=== PATIENT | male | born 1960 | race Caucasian/White ===

== ENCOUNTER 2025-05-31 12:13 | Inpatient (IN) | payer OTHER, SELFPAY ==
[2025-05-31] VITALS (21 sets, daily range): BP systolic 97–153; BP diastolic 53–91; BMI 37.3; BMI 37.2
[2025-05-31] MEDS: NSS 500 IV ×3 (05:49→22:49)
[2025-05-31] MEDS: DILAUDID 1 MG IV (05:51)
--- NOTE | 2025-05-31 05:51 | ED.GENMED ---
History of Present Illness
<Felisa Mcclelland PA-C - Last Filed: 06/05/25 15:09>
General
Chief Complaint: Abdominal Symptoms
Time Seen by Provider: 05/31/25 05:20
Past History
<Felisa Mcclelland PA-C - Last Filed: 06/05/25 15:09>
Past History
ED Past Medical History: HTN, Hypercholesterolemia, NIDDM and Other (Diverticulitis)
ED Past Surgical History: None
Course
<Felisa Mcclelland PA-C - Last Filed: 06/05/25 15:09>
Orders/Labs/Results
Orders:
Orders
05/31/25 05:11
IV Insert/Care/Rem.- Treatment PRN
05/31/25 05:33
0.9% Sodium Chloride 500 ml [Nss] 500 ml IV BOLUS
HYDROmorphone [Dilaudid] 1 mg IV NOW STA
Ondansetron Injectable [Zofran] 4 mg IV NOW STA
05/31/25 05:47
Complete Blood Count/With Diff Urgent
Comprehensive Metabolic Panel Urgent
Lipase Urgent
05/31/25 06:39
Iohexol [Omnipaque] See Protocol PO NOW STA
05/31/25 06:40
CT Abd/pel W Iv And Oral Contr Urgent
Comment:
Reason For Exam: abd pain, vomiting, partial colectomy
05/31/25 08:22
HYDROmorphone [Dilaudid] 0.5 mg IV NOW STA
Ondansetron Injectable [Zofran] 4 mg IV NOW STA
05/31/25 Lunch
NPO
Allow oral meds: Yes
Allow clear liquids: Sips of Clears
05/31/25 10:53
HYDROmorphone [Dilaudid] 0.5 mg IV NOW STA
Ondansetron Injectable [Zofran] 4 mg IV NOW STA
05/31/25 11:00
0.9% Sodium Chloride 500 ml [Nss] 500 ml IV 100 mls/hr
05/31/25 11:28
SURGICAL CONSULT Routine
Consulting Provider: Shawn Bustos
Was physician already notified: Yes
Reason for consult: GB colic, 1.2cm stone
05/31/25 11:34
Urinalysis Reflex To Culture Urgent
Date Specimen was Collected: 05/31/25
Time Specimen was Collected: 05:11
Urine Microscopic Reflex Cult Urgent
05/31/25 12:00
Admit/Transfer Patient As Directed
Co-Sign Provider:
Level of Care: Inpatient admission
Assign to:: Medical/Surgical
Physician / Group: Hospitalist
Diagnosis: Biliary colic
Reason for Hospitalization: Biliary
Expected length of stay greater than two midnights?: Yes
ELOS- Estimated Length of Stay in days: 2
I certify the patient meets the requirements for IP care: Yes
05/31/25 12:01
PRN Pain Medication Management As Directed
May give lesser potent ordered pain med per pt: Yes
preference::
Protocol:: Medication orders for pain may be administered in a
manner that supports deferring to patient preference
when the pt is:
- Requesting an ordered lesser potent pain medication.
Least to most potent pain medications are defined
as: acetaminophen < NSAID < tramadol < opioids
(morphine, oxycodone, hydromorphone).
- Requesting a lesser dose of the same medication IF
ORDERED.
- Requesting a less intrusive route of administration
if both routes are prescribed by the provider (PO <
IV).
05/31/25 12:03
Code Status As Directed
Resuscitation Status: Full Code
05/31/25 13:52
Activity As Directed
Activity Level: As Tolerated
Vital Signs As Directed
Frequency: Per unit guidelines
DX Deep Vein Thrombosis Video Routine
06/01/25 07:04
Complete Blood Count/With Diff IN AM
Comprehensive Metabolic Panel IN AM
Abnormal Lab Results
05/31/25 05/31/25
05:47 11:34
RBC 4.10 L 10^6/uL
(4.70-6.10)
Hgb 12.3 L g/dL
(13.0-18.0)
Hct 35.5 L %
(39.0-52.0)
MPV 10.9 H fL
(7.4-10.4)
Absolute Neuts (auto) 6.8 H 10^3/uL
(1.4-6.5)
Absolute Lymphs (auto) 1.0 L 10^3/uL
(1.2-3.4)
Neutrophils % 81.4 H %
(42.2-75.2)
Lymphocytes % 11.7 L %
(20.5-51.1)
Glucose 144 H mg/dl
(70-99)
Ur Occult Blood Reflex 1+ A
(Negative)
Urine Albumin (Reflex) 2+ A
(Neg - Trace)
05/31/25 05:47
05/31/25 05:47
Vital Signs
Initial and Last Documented VS:
Initial Vital Signs
Temp Pulse Resp BP Pulse Ox
36.4 C 56 20 146/72 100
05/31/25 05:05 05/31/25 05:05 05/31/25 05:05 05/31/25 05:05 05/31/25 05:05
Last Documented Vital Signs
Temp Pulse Resp BP Pulse Ox
36.6 C 69 18 107/57 96
06/01/25 07:45 06/01/25 07:45 06/01/25 07:45 06/01/25 07:45 06/01/25 07:45
<Alexx Bernstein MD - Last Filed: 05/31/25 11:04>
Orders/Labs/Results
Orders:
Orders
05/31/25 05:11
IV Insert/Care/Rem.- Treatment PRN
05/31/25 05:33
0.9% Sodium Chloride 500 ml [Nss] 500 ml IV BOLUS
HYDROmorphone [Dilaudid] 1 mg IV NOW STA
Ondansetron Injectable [Zofran] 4 mg IV NOW STA
05/31/25 05:47
Complete Blood Count/With Diff Urgent
Comprehensive Metabolic Panel Urgent
Lipase Urgent
05/31/25 06:39
Iohexol [Omnipaque] See Protocol PO NOW STA
05/31/25 06:40
CT Abd/pel W Iv And Oral Contr Urgent
Comment:
Reason For Exam: abd pain, vomiting, partial colectomy
05/31/25 08:22
HYDROmorphone [Dilaudid] 0.5 mg IV NOW STA
Ondansetron Injectable [Zofran] 4 mg IV NOW STA
05/31/25 Lunch
NPO
Allow oral meds: Yes
Allow clear liquids: Sips of Clears
05/31/25 10:53
HYDROmorphone [Dilaudid] 0.5 mg IV NOW STA
Ondansetron Injectable [Zofran] 4 mg IV NOW STA
05/31/25 11:00
0.9% Sodium Chloride 500 ml [Nss] 500 ml IV 100 mls/hr
05/31/25 11:28
SURGICAL CONSULT Routine
Consulting Provider: Shawn Bustos
Was physician already notified: Yes
Reason for consult: GB colic, 1.2cm stone
05/31/25 11:34
Urinalysis Reflex To Culture Urgent
Date Specimen was Collected: 05/31/25
Time Specimen was Collected: 05:11
Urine Microscopic Reflex Cult Urgent
05/31/25 12:00
Admit/Transfer Patient As Directed
Co-Sign Provider:
Level of Care: Inpatient admission
Assign to:: Medical/Surgical
Physician / Group: Hospitalist
Diagnosis: Biliary colic
Reason for Hospitalization: Biliary
Expected length of stay greater than two midnights?: Yes
ELOS- Estimated Length of Stay in days: 2
I certify the patient meets the requirements for IP care: Yes
05/31/25 12:01
PRN Pain Medication Management As Directed
May give lesser potent ordered pain med per pt: Yes
preference::
Protocol:: Medication orders for pain may be administered in a
manner that supports deferring to patient preference
when the pt is:
- Requesting an ordered lesser potent pain medication.
Least to most potent pain medications are defined
as: acetaminophen < NSAID < tramadol < opioids
(morphine, oxycodone, hydromorphone).
- Requesting a lesser dose of the same medication IF
ORDERED.
- Requesting a less intrusive route of administration
if both routes are prescribed by the provider (PO <
IV).
05/31/25 12:03
Code Status As Directed
Resuscitation Status: Full Code
05/31/25 13:52
Activity As Directed
Activity Level: As Tolerated
Vital Signs As Directed
Frequency: Per unit guidelines
DX Deep Vein Thrombosis Video Routine
06/01/25 07:04
Complete Blood Count/With Diff IN AM
Comprehensive Metabolic Panel IN AM
Abnormal Lab Results
05/31/25 05/31/25
05:47 11:34
RBC 4.10 L 10^6/uL
(4.70-6.10)
Hgb 12.3 L g/dL
(13.0-18.0)
Hct 35.5 L %
(39.0-52.0)
MPV 10.9 H fL
(7.4-10.4)
Absolute Neuts (auto) 6.8 H 10^3/uL
(1.4-6.5)
Absolute Lymphs (auto) 1.0 L 10^3/uL
(1.2-3.4)
Neutrophils % 81.4 H %
(42.2-75.2)
Lymphocytes % 11.7 L %
(20.5-51.1)
Glucose 144 H mg/dl
(70-99)
Ur Occult Blood Reflex 1+ A
(Negative)
Urine Albumin (Reflex) 2+ A
(Neg - Trace)
05/31/25 05:47
05/31/25 05:47
Vital Signs
Initial and Last Documented VS:
Initial Vital Signs
Temp Pulse Resp BP Pulse Ox
36.4 C 56 20 146/72 100
05/31/25 05:05 05/31/25 05:05 05/31/25 05:05 05/31/25 05:05 05/31/25 05:05
Last Documented Vital Signs
Temp Pulse Resp BP Pulse Ox
36.6 C 69 18 107/57 96
06/01/25 07:45 06/01/25 07:45 06/01/25 07:45 06/01/25 07:45 06/01/25 07:45
<Felisa Mcclelland PA-C - Last Filed: 06/05/25 15:09>
MDM/Problems Addressed
Differential Diagnosis Includes:
see MDM
MDM/Problems Addressed:
Note:
CHIEF COMPLAINT(S)
Abdominal pain and vomiting.
HISTORY OF PRESENT ILLNESS
The patient is a 65-year-old male who presents with abdominal pain and vomiting. He reports that the abdominal pain started the previous night at approximately 10:00 PM and worsened over time. He had consumed a dinner consisting of a cheese hoagie,
potato chips, and soda. The pain began before the onset of nausea. The patient vomited before arriving at the facility and once more while at the facility. He describes the pain as constant and significant, rating it as an 8 out of 10 in severity.
The pain is not associated with any chest pain or fever.
The patient recalls a previous episode of abdominal pain which occurred approximately seven weeks ago, resolving after a few days without medical intervention. He has a history of diverticulitis and underwent surgery with a resection of 18 inches of
his intestine a couple of years ago. The patient denies any history of pancreatitis but does have a history of diverticulitis with a previous abscess formation following the colon surgery. He reports feeling more bloated than usual. Physical
examination reveals tenderness in the abdominal area but no hernias were noted.
PAST MEDICAL AND SURGICAL HISTORY
The patient has a history of hypertension, hyperlipidemia, type 2 diabetes mellitus (managed with metformin), and past diverticulitis with surgical intervention involving resection of the colon.
CHRONIC MEDICAL CONDITIONS SIGNIFICANTLY AFFECTING CARE
Hypertension, hyperlipidemia, and type 2 diabetes mellitus.
SOCIAL HISTORY
The patient does not consume alcohol, tobacco, or illicit substances.
PHYSICAL EXAM
GENERAL: Alert , in no apparent distress
EYE: pupils equal and reactive
NECK: Supple
ENT: o/p clr, mmm.
CARDIAC: Regular rate and rhythm .
LUNGS: Clear breath sounds bilaterally, no acute respiratory distress, no wheezes/rales/rhonchi
ABDOMEN: Soft, obese, mildly distended, soft, tender upper and left abdomen , no r/g, no cvat, normal bowel sounds
NEUROLOGICAL: Alert and oriented, no focal neuro deficits
SKIN: Warm and dry, skin intact.
MUSCULOSKELETAL: No edema, well perfused. neg stefany's sign
PSYCH: Normal and appropriate interaction.
- The patients vital signs were noted, and nursing notes have been reviewed.
PROBLEM LIST
Acute:
1. Abdominal pain
2. Nausea and vomiting
Chronic:
1. Hypertension
2. Hyperlipidemia
3. Type 2 diabetes mellitus
PLAN
1. Initiate blood work to assess liver function tests to investigate potential hepatic involvement.
2. Imaging studies will be conducted, starting with a non-contrasted scan to avoid exacerbating vomiting.
3. Administer medications for nausea and pain relief as requested by the patient.
4. Consider an ultrasound if liver function tests are elevated.
DIFFERENTIAL DIAGNOSIS
The Differential Diagnosis includes, in no particular order and is not limited to:
1. Small bowel obstruction
2. Diverticulitis
3. Gastroenteritis
4. Pancreatitis
5. Peptic ulcer disease
6. Cholecystitis
7. Appendicitis
8. Mesenteric ischemia
9. Gastroparesis
10. Gastroesophageal reflux disease (GERD)
65-year-old male with a history of a previous bowel resection status post colostomy with reversal several years ago due to diverticulitis presents for abdominal pain and vomiting onset last night with 2 episodes of vomiting and abdominal pain and
distention. On exam he has mildly distended, obese abdomen with mild tenderness to the mid abdomen. There is no guarding or rebound. Patient's labs are unremarkable. After analgesic and antiemetic we will try some oral contrast. Signed out
pending CT
<Felisa Mcclelland PA-C - Last Filed: 06/05/25 15:09>
*Pulse Oximetry
SaO2: 99
Oxygen Mode of Delivery: Room air
ED Attending Note
<Felisa Mcclelland PA-C - Last Filed: 06/05/25 15:09>
-
Portions of this chart may have been created with voice recognition software.� Occasional wrong word or��sound alike� substitutions may have occurred due to the inherent limitations of voice recognition software.
<Alexx Bernstein MD - Last Filed: 05/31/25 11:04>
ED Attending Note
Patient seen and examined by attending physician: Yes
ED Attending Note:
Patient presents to ED secondary to persistent abdominal pain associated with nausea since last night. Patient has had similar symptoms in the past, especially associated with food, but always resolved spontaneously. Abdominal pain described as
sharp, diffuse, without alleviating or exacerbate factors. Denies trauma. Denies fever or chills. Denies diarrhea. Denies change in bowel habits. Denies recent change in medications.
Physical Exam
General: mild painful distress, not acutely ill. afebrile. overweight
Head: nc/at. eomi
Neck: supple. normal range of motion
Heart: s1/s2 regular rate and rhythm
Lungs: no acute respiratory distress. clear bilaterally
Abdomen: normal bowel sounds. mild epigastric/periumbilical tenderness to palpation, without distention
Neuro: alert and oriented. no focal neurological deficits
Skin: no rash
Psychiatric: well kept. interactive and cooperative
Extremities: no edema. no calf tenderness
History, exam, and CT abdomen pelvis, consistent with likely biliary colic, secondary to large gallstone in the gallbladder neck. Patient requiring multiple doses of pain medication in ED. As such, patient will be admitted for further evaluation
and treatment. On-call GI physician, Dr. Vazquez, notified via [facility] text.
Discharge Plan
Departure
Patient Disposition: Admit
Date of Disposition: 05/31/25
Time of Disposition: 10:55
Admit to: Med/Surg
Presentation/result/management discussed w/ accepting MD/DO: Hospitalist
Discharge Problem:
Biliary colic
Interventions
Interventions:
*General Assessment Last Done: 05/31/25 05:05
*Neglect/Abuse Screening Last Done: 05/31/25 05:05
*ED- Fall Risk Assessment Last Done: 05/31/25 05:05
*ED Influenza Vaccine History Last Done: 05/31/25 05:05
*Nursing Disposition Last Done: 05/31/25 13:45
RZ-Dbgzvp-Wwjjyimnvf Assessment Last Done: 05/31/25 05:29
Discharge Date and Time
Discharge Date/Time: 05/31/25 13:45
[2025-05-31] MEDS: ZOFRAN 4 MG IV ×3 (05:52→11:05)
[2025-05-31 06:08] LABS: Hematocrit 35.5 % (39.0-52.0); Hemoglobin 12.3 g/dL (13.0-18.0); Mean Corp Hgb Conc. 34.6 g/dL (33.0-37.0); Mean Corpuscular Volume 86.6 fL (80.0-94.0); Nucleated Red Blood Cells % 0 % (-); Platelet Count 182 10^3/uL (130-400); Red Cell Dist. Width 12.7 % (11.5-14.5)
[2025-05-31 06:34] LABS: ALT (SGPT) 17 U/L (0-50); AST (SGOT) 18 U/L (17-59); Albumin 3.7 g/dl (3.5-5.0); Alkaline Phosphatase 86 U/L (38-126); Blood Urea Nitrogen 16 mg/dl (9-20); Calcium 9.3 mg/dl (8.4-10.2); Carbon Dioxide 30 mmol/L (22-30); Chloride 103 mmol/L (98-107); Estimated Creatinine Clearance 95 ml/min; Glucose 144 mg/dl (70-99); Lipase 93 U/L (23-300); Potassium 4.0 mmol/L (3.5-5.1); Sodium 139 mmol/L (135-145); Total Protein 6.7 g/dl (6.3-8.2); eGFR > 60.00
[2025-05-31] MEDS: OMNIPAQUE 50 ML PO (07:10)
--- NOTE | 2025-05-31 07:38 | EDRN ---
Pt states pain remains 2-3/10 at this time. Pt is drinking contrast at this time.
[2025-05-31] MEDS: DILAUDID 0.5 MG IV ×3 (08:27→14:24)
--- NOTE | 2025-05-31 09:10 | EDRN ---
Pt has finished drinking oral contrast at this time.
--- NOTE | 2025-05-31 10:42 | EDRN ---
Pt remains not able to void since this RN took over care of pt at 07:00. Pt is aware urine spec is needed. Pain is now 5/10 and pt has nausea. Pain started to increase post CT an nausea came back w/ movement in CT.
--- NOTE | 2025-05-31 10:51 | EDRN ---
Dr. Bernstein TT'd about pt's pain and nausea at this time.
--- NOTE | 2025-05-31 11:23 | EDRN ---
Dr. Solis in to see pt at this time.
--- NOTE | 2025-05-31 11:37 | EDRN ---
Pt OOB to [facility] and voided w/ urine spec obtained and sent. Pt states pain is gone as is nausea at this time.
--- NOTE | 2025-05-31 11:48 | HPS.HSE ---
Addendum entered and electronically signed by Luis Solis MD 05/31/25 13:25:
I personally performed a history and physical exam of the patient and discussed management with the resident. I reviewed the resident's note and agree with the documented findings and plan of care HPI/CC.
65-year-old male who presents with a chief complaint of right upper quadrant abdominal pain. He had some vomiting this morning. Denies any fevers.
142/60, 64, 16, 97.6 �F, 94% RA
Gen: NAD, AAOx3.
Eyes: EOMI, PERRLA, no scleral icterus.
Neck: supple.
CV: RRR, +S1/S2, no m/r/g.
Resp: CTAB, no rales, wheezes, or rhonchi.
Abd: +BS, soft, RUQ TTP without guarding, ND
Skin: No rashes.
Neuro: CN 2-12 intact, non-focal.
Psych: Normal mood and affect.
Allergies
Allergy/AdvReac Type Severity Reaction Status Date / Time
No Known Allergies Allergy Verified 05/31/25 05:05
Home Medications
aspirin 81 mg tablet,delayed release 81 mg PO HS Blood clot prevention/tx 07/08/21
potassium chloride 20 mEq tablet,extended release(part/cryst) (Klor-Con M) 20 meq PO DAILY Electrolyte Repletion 07/08/21
tamsulosin 0.4 mg capsule 0.4 mg PO HS Urinary issue 07/08/21
potassium chloride 20 mEq tablet,extended release(part/cryst) (Klor-Con M) 40 meq PO QPM Electrolyte Repletion 01/19/22
losartan 100 mg-hydrochlorothiazide 25 mg tablet 1 tab PO DAILY Blood Pressure 05/31/25
omeprazole 20 mg tablet,delayed release 20 mg PO DAILY gerd 05/31/25
rosuvastatin 40 mg tablet (Crestor) 40 mg PO DAILY High Cholesterol 05/31/25
tirzepatide 15 mg/0.5 mL subcutaneous pen injector (Mounjaro) 15 mg SC WE Weight Gain 05/31/25
Lab Results
05/31/25 05/31/25
05:47 11:34
WBC 8.4
RBC 4.10 L
Hgb 12.3 L
Hct 35.5 L
MCV 86.6
MCH 30.0
MCHC 34.6
RDW 12.7
Plt Count 182
MPV 10.9 H
Abs Immat Gran (auto) 0.0
Absolute Neuts (auto) 6.8 H
Absolute Lymphs (auto) 1.0 L
Absolute Monos (auto) 0.4
Absolute Eos (auto) 0.1
Absolute Basos (auto) 0.0
Immature Gran % 0.2
Neutrophils % 81.4 H
Lymphocytes % 11.7 L
Monocytes % 5.2
Eosinophils % 1.0
Basophils % 0.5
Nucleated RBC % 0
Sodium 139
Potassium 4.0
Chloride 103
Carbon Dioxide 30
BUN 16
Creatinine 1.0
Estimated Creat Clear 95
eGFR > 60.00
Glucose 144 H
Calcium 9.3
Total Bilirubin 0.5
AST 18
ALT 17
Alkaline Phosphatase 86
Total Protein 6.7
Albumin 3.7
Lipase 93
Urine Color Yellow
Urine Clarity Clear
Urine pH 7.0
Ur Specific [place] 1.005
Urine Ketones Negative
Ur Occult Blood Reflex 1+ A
Urine Nitrite (Reflex) Negative
Urine Bilirubin Negative
Urine Urobilinogen 1+
Leukocyte Esterase Rfl Negative
Urine RBC 0-2
Urine WBC (Reflex) 3-5
Ur Squamous Epith Cells 0-2
Urine Glucose Negative
Urine Albumin (Reflex) 2+ A
CT A/P:
1. No acute intra-abdominal process identified.
2. As above, area of decreased hepatic attenuation with indistinct margins along the lateral aspect of the right lobe of the liver with associated mild capsular retraction. This could be related to scarring or perfusion anomaly. Other etiologies
including neoplasm are possible, considered less likely. Could be further evaluated with follow-up abdominal ultrasound nonemergently.
3. Cholelithiasis.
4. Multiple ventral hernias as above. There is involvement of small and large bowel, no associated obstruction. No signs of associated acute inflammatory changes.
RUQ pain due to GB colic:
-LFTs/Lipase normal, afebrile, no leukocytosis
-CT A/P with 1.2cm GB neck cholelithiasis
-NPO/IVFs/pain control
-c/s surgery
Original Note:
Family Physician
-
Family Physician: Winirfed Rasmussen MD
Chief Complaint
-
Abdominal pain, nausea, vomiting
History of Present Illness
65-year-old male presents to the ER reporting abdominal pain, vomiting. He has a past medical history of hypertension, hyperlipidemia, diabetes. Patient reports that the pain started last night 2 hours after he had dinner. It is located in the
mid abdominal region, no radiation, constant, 8/10 but he has not taken anything for the pain. Patient vomited early in the morning, nonbloody vomitus. No associated fever/chills, chest pain, lightheadedness/dizziness, diarrhea, bloody stools.
Last time he had a bowel movement was yesterday morning, but he is passing flatus. Patient reports that he had similar episodes before from the past 2 years, but was not as severe as this one. Patient has a history of diverticulitis, s/p resection
of 18 inches of intestine.
ED course-patient afebrile at presentation, vital stable, normal white count, hemoglobin�12.3, normal LFTs, CT abdomen pelvis with evidence of 1.2 cm stone in the gallbladder neck. Patient was given antiemetics and analgesics in the ER, surgery
consulted.
Medical History
Past Medical History
Past Medical History: Reports HTN, Hypercholesterolemia and NIDDM
Past Surgical History: Reports Bowel Resection
Social History
Tobacco: Non-smoker
Alcohol: Occasional
Drug: None
Personal:
Living: Alone
Employment: Employed
Family History
Family History: Not pertinent
Allergies / Home Medications
Allergies reflects when Allergies were last updated in [employer].
Home Medications with original date entered in [employer]
Allergy/Medication List:
Allergies
Allergy/AdvReac Type Severity Reaction Status Date / Time
No Known Allergies Allergy Verified 05/31/25 05:05
Home Medications
aspirin 81 mg tablet,delayed release 81 mg PO HS Blood clot prevention/tx 07/08/21
potassium chloride 20 mEq tablet,extended release(part/cryst) (Klor-Con M) 20 meq PO DAILY Electrolyte Repletion 07/08/21
tamsulosin 0.4 mg capsule 0.4 mg PO HS Urinary issue 07/08/21
potassium chloride 20 mEq tablet,extended release(part/cryst) (Klor-Con M) 40 meq PO QPM Electrolyte Repletion 01/19/22
losartan 100 mg-hydrochlorothiazide 25 mg tablet 1 tab PO DAILY Blood Pressure 05/31/25
omeprazole 20 mg tablet,delayed release 20 mg PO DAILY gerd 05/31/25
rosuvastatin 40 mg tablet (Crestor) 40 mg PO DAILY High Cholesterol 05/31/25
tirzepatide 15 mg/0.5 mL subcutaneous pen injector (Mounjaro) 15 mg SC WE Weight Gain 05/31/25
Review of Systems
-
A 12 point ROS was completed and negative except as noted: Yes
Physical Exam
Vital Signs
Vital Signs
Temp Pulse Resp BP Pulse Ox
97.6 F 65 16 141/66 100
05/31/25 05:05 05/31/25 11:15 05/31/25 11:15 05/31/25 11:00 05/31/25 11:38
Physical Exam
General: No Apparent Distress
HEENT: NormoCephalic, Moist mucous membranes and Atraumatic
Respiratory: Clear
Cardiac: S1/S2 and Regular Rhythm
GI: Soft, Non Tender, Normal Bowel Sounds and Distended
Laboratory Results
-
05/31/25 05:47
05/31/25 05:47
Laboratory Results
Total Bilirubin 0.5 mg/dl (0.2-1.3) 05/31/25 05:47
AST 18 U/L (17-59) 05/31/25 05:47
ALT 17 U/L (0-50) 05/31/25 05:47
Alkaline Phosphatase 86 U/L (38-126) 05/31/25 05:47
Lipase 93 U/L (23-300) 05/31/25 05:47
Impression/Plan
-
IMPRESSION:
65-year-old male presenting with abdominal pain, nausea, vomiting. He has a past medical history of hypertension, hyperlipidemia, diabetes mellitus, diverticulitis s/p bowel resection.
PLAN:
#Gallstone
Patient is afebrile, normal WBC count.
Hemodynamically stable
CT with evidence of gallstone in the gallbladder neck, no evidence of infection.
Will manage conservatively
Surgery consulted
Start IV fluids
N.p.o.
Adequate pain control with Dilaudid
Antiemetics as needed
#NIDDM
Patient is on tirzepatide
Will do SSI�moderate
#Hyperlipidemia
Continue Crestor
#Hypertension
Continue losartan hydrochlorothiazide
#Continue oral KCl
DVT prophylaxis�heparin subcu
Diet n.p.o. for now
Full code
[2025-05-31 11:50] LABS: Urine Character Clear (Clear)
--- NOTE | 2025-05-31 12:12 | EDRN ---
Dr. Caleb Roa (Hospitalist resident) in room w/ pt at this time.
[2025-05-31 12:34] LABS: Urine Red Blood Cell 0-2 /HPF (0-2); Urine Squamous Cell 0-2 /LPF (Few)
--- NOTE | 2025-05-31 12:35 | EDRN ---
[facility] surgical PA in room w/ pt at this time.
--- NOTE | 2025-05-31 12:42 | EDRN ---
Case management in room w/pt at this time. (Dariusz Cherry).
--- NOTE | 2025-05-31 12:53 | CON.GS ---
Addendum entered and electronically signed by Gabriel Corona MD 05/31/25 19:13:
Patient seen and examined.
Patient is a 65 yo M with a PMH of obesity, GERD, HTN, HLD, NIDDM, LEFT eye blindness, DANIE, and diverticulitis c/b colovesicular fistula s/p Esperanza's procedure s/p reversal. Mr. Campuzano states that yesterday evening he acutely developed RIGHT-sided
abdominal pain. This was different than his prior chronic abdominal discomfort which he describes as more centrally as well as located over his ostomy. Symptoms occurred after having a cheese hoagie with chips and a chocolate bar. Currently his
abdominal discomfort has improved. Associated nausea and vomiting. Denies any jaundice, pale stools, or tea colored urine.
Gen: NAD
Abd: soft, mild RUQ tenderness, obese, non-peritoneal, prior incisions well healed, palpable midline and parastoma to thel hernias
Labs and imaging were reviewed.
Patient is a 65 yo M p/w acute cholecystitis versus biliary colic
The natural history and pathophysiology of biliary stone disease was discussed. Anatomy was reviewed. Workup thus far including labs and CT scan imaging was reviewed. Options for management were reviewed. Recommended plan for cholecystectomy.
Plan for laparoscopic cholecystectomy. The procedure itself, as well as the risks, benefits, and alternatives was discussed. Specifically, we discussed the risks of bleeding, infection, injury to surrounding structures (bowel, bile ducts), CBD
injury, need for open procedure. Postprocedure recovery including pain management, activity restrictions, and a 10 to 20% risks of fluctuations in GI function were discussed. All questions answered. Consent signed.
-- Laparoscopic cholecystectomy with IOC
-- NPO, IVF
-- Antibiotics: Zosyn
Original Note:
Consultation
-
Date/Time Consultation Performed: 05/31/25 1995
Medical History
-
Chief Complaint: abdominal pain
History of Present Illness:
Mr Adan is a 65 yo male with a h/o NIDDM on Mounjaro, morbid obesity with DANIE on cpap, diverticulitis complicated by colovesical fistula s/p Esperanza's with takedown of the fistula in 2021 with subsequent reversal of the colostomy who presents with
intermittent upper abdominal pain after eating over the past months to a year. Last night he had a cheese hoagie with chips and later that night a chocolate bar, he subsequently developed upper right abdominal pain radiating across his abdomen to
the left which persisted. He does have several ventral/incisional hernias on exam and notes that often the pain he has after eating is not only to the RUQ but also to the left parastomal hernia site and the area becomes quite firm/distended at
times. With this current episode, his pain was more focally on the right side and accompanied by nausea with an episode of emesis. He denies fevers or chills. He notes that the pain is improved after analgesics but still present with RUQ tenderness
on exam. Hernia sites are soft/reducible on exam without tenderness currently.
Past Medical History
Past Medical History: Diverticulitis, GERD, HTN, Hypercholesterolemia, NIDDM and Other (BPH, blind left eye, DANIE (cpap), Morbid obesity, anemia)
Past Surgical History: Bowel Resection (Esperanza's with takedown of colovesical fistula 08/2021, reversal 12/2021) and Other (cataract surgery right eye 2019)
Social History
Tobacco: Non-Smoker
Alcohol: Occasional (rare)
Drug: None
Personal: (recently 2 this month)
Living: With Family
Family History
Family History: Reviewed & Not Pertinent
Allergies / Home Medications
Allergy/AdvReac Type Severity Reaction Status Date / Time
No Known Allergies Allergy Verified 05/31/25 05:05
�Medication �Instructions �Recorded �Confirmed �Type
aspirin 81 mg tablet,delayed 81 mg PO HS Blood clot 07/08/21 05/31/25 History
release prevention/tx
potassium chloride 20 mEq 20 meq PO DAILY Electrolyte 07/08/21 05/31/25 History
tablet,extended Repletion
release(part/cryst) (Klor-Con M)
tamsulosin 0.4 mg capsule 0.4 mg PO HS Urinary issue 07/08/21 05/31/25 History
potassium chloride 20 mEq 40 meq PO QPM Electrolyte Repletion 01/19/22 05/31/25 History
tablet,extended
release(part/cryst) (Klor-Con M)
losartan 100 1 tab PO DAILY Blood Pressure 05/31/25 05/31/25 History
mg-hydrochlorothiazide 25 mg tablet
omeprazole 20 mg tablet,delayed 20 mg PO DAILY gerd 05/31/25 05/31/25 History
release
rosuvastatin 40 mg tablet (Crestor) 40 mg PO DAILY High Cholesterol 05/31/25 05/31/25 History
tirzepatide 15 mg/0.5 mL 15 mg SC WE Weight Gain 05/31/25 05/31/25 History
subcutaneous pen injector
(James)
Review of Systems
-
History Source: Patient and Family
All other systems: Negative unless noted
A 10 point review of systems was completed, and was negative except as per HPI.
Physical Exam
Vital Signs
Temp Pulse Resp BP Pulse Ox
97.6 F 65 25 141/66 100
05/31/25 05:05 05/31/25 12:00 05/31/25 12:00 05/31/25 11:00 05/31/25 12:00
05/30/25 05/31/25 06/01/25
06:59 06:59 06:59
Actual Weight 121.3 kg
Body Mass Index (BMI) 37.3
Lab Results
05/31/25 05:47
05/31/25 05:47
WBC 8.4 10^3/uL (4.8-10.8) 05/31/25 05:47
Hgb 12.3 g/dL (13.0-18.0) L 05/31/25 05:47
Hct 35.5 % (39.0-52.0) L 05/31/25 05:47
Plt Count 182 10^3/uL (130-400) 05/31/25 05:47
Abs Immat Gran (auto) 0.0 10^3/uL (0-0.05) 05/31/25 05:47
Neutrophils % 81.4 % (42.2-75.2) H 05/31/25 05:47
Physical Exam
General: Well Developed and Well Nourished
HEENT: Other (BISHOP PAIUTE, blind left eye)
Respiratory: Non Labored Respirations
GI: Soft, Non Distended, Tender (RUQ), Obese and Other (Incisional hernias to midline and prior ostomy site: soft/reducible)
Skin: Warm
Neuro: Awake, Alert and AO x 3
Psych: Calm
Data Reviewed
-
CT Scan: Image Personally Visualized and interpreted, Report Reviewed by me, Discussed with Physician, Discussed with Patient and Discussed with Family
Labs: Labs Reviewed by me, Discussed with Physician, Discussed with Patient and Discussed with Family
Old Records: Reviewed
Assessment / Plan
-
65 yo male h/o NIDDM on Mounjaro, morbid obesity with DANIE on cpap, diverticulitis complicated by colovesical fistula s/p Esperanza's with takedown of the fistula in 2021 with subsequent reversal of the colostomy who presents with intermittent upper
abdominal pain after eating over the past months to a year presenting with persistent RUQ abdominal pain with n/v after a high fat meal last night. RUQ tenderness present on exam despite analgesics.
CT imaging reviewed with large gallstone noted near the gallbladder neck without pericholecystic edema/stranding. Also with noted incisional/ventral hernias to midline and prior stoma site containing bowel without evidence of
obstruction/strangulation. Afebrile, VSS. WBC wnl but with left shift. LFT's & Lipase WNL. Suspect biliary colic as the etiology of his symptoms.
Plan:
Will plan laparoscopic cholecystectomy, timing TBD
Given ongoing pain, continue NPO. ABX empirically.
Analgesics/antiemetics
Hold GLP-1
Outpatient follow up for continued discussion of repair of incisional hernias
Medical management as per primary service
--- NOTE | 2025-05-31 13:41 | CM ---
Chart reviewed and spoke with patient and his Mariluz Adan [phone] at ED bedside
Lives in an independent living apartment at [facility]'s home with .
Patient is independent with ADLs and drives
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
DME CPAP; would bring it to the hospital tonight
PCP Winifred Rasmussen
RX plan yes
Pharmacy [facility] on [address]
no hx of VN nor SNF
DCP is to go home with no needs most likely.
will provide transportation at the time of DC
CM will continue to follow up for any DCP needs
[2025-05-31] MEDS: ZOSYN 50 IV (14:06)
[2025-05-31] MEDS: PROTONIX 40 MG PO (15:21)
[2025-05-31] MEDS: COZAAR 100 MG PO (15:22)
[2025-05-31] MEDS: HEPARIN 5000 UNITS SC (15:23)
[2025-05-31 17:50] LABS: Glucose - Point of Care 72 mg/dl (70-99)
--- NOTE | 2025-05-31 19:06 | W.SUR.PREOP ---
Pre-Operative Surgical Note
-
I have examined this patient prior to the performance of the scheduled procedure.
The patient's condition is unchanged from the time of the current History and
Physical and the patient is able to undergo the scheduled procedure.
[2025-05-31 19:10] LABS: Glucose - Point of Care 98 mg/dl (70-99)
[2025-05-31] MEDS: ZOSYN IV (19:39)
--- NOTE | 2025-05-31 20:43 | W.IMMPOSTOP ---
Surgical Immed Post Op Note
-
Primary Surgeon: Cj
Assisting Surgeon: Akash
Pre-op Diagnosis: Acute cholecystitis
Post-op Diagnosis: Acute cholecystitis
Procedure Performed: Laparoscopic cholecystectomy
Anesthesia Type: General
Specimen / Cultures:
1. Gallbladder
Estimated Blood Loss: 3 cc
Complications: None
Operative Findings:
1. Distended and inflamed GB, edematous tissues, wall thickening, turbid fluid within RUQ
2. Clear view of cystic duct clipped, artery taken with cautery high on GB
[2025-05-31 20:57] LABS: Glucose - Point of Care 141 mg/dl (70-99)
[2025-05-31] MEDS: ASPIR LOW (ENTERIC COATED) 81 MG PO (22:35)
[2025-05-31] MEDS: FLOMAX 0.4 MG PO (22:35)
--- NOTE | 2025-05-31 23:00 | PTCARENOTE ---
Pt. returned from PACU, vs stable, 5 abdominal stab sites with Dermabond intact, at bedside, call denney within reach.
[2025-06-01] MEDS: HEPARIN 5000 UNITS SC ×2 (00:12→08:17)
[2025-06-01] MEDS: TYLENOL 650 MG PO ×3 (00:15→11:23)
[2025-06-01] MEDS: ZOSYN 50 IV ×3 (02:16→13:27)
[2025-06-01 03:21] VITALS: BP 104/56
[2025-06-01] MEDS: TYLENOL PO (04:20)
[2025-06-01] MEDS: NSS 500 IV ×3 (04:57→11:23)
[2025-06-01 07:15] LABS: Glucose - Point of Care 148 mg/dl (70-99)
[2025-06-01 07:36] LABS: Hematocrit 32.6 % (39.0-52.0); Hemoglobin 11.3 g/dL (13.0-18.0); Mean Corp Hgb Conc. 34.7 g/dL (33.0-37.0); Mean Corpuscular Volume 87.2 fL (80.0-94.0); Nucleated Red Blood Cells % 0 % (-); Platelet Count 182 10^3/uL (130-400); Red Cell Dist. Width 12.4 % (11.5-14.5)
[2025-06-01 07:45] VITALS: BP 107/57
[2025-06-01 08:07] LABS: ALT (SGPT) 25 U/L (0-50); AST (SGOT) 27 U/L (17-59); Albumin 3.1 g/dl (3.5-5.0); Alkaline Phosphatase 68 U/L (38-126); Blood Urea Nitrogen 16 mg/dl (9-20); Calcium 8.2 mg/dl (8.4-10.2); Carbon Dioxide 27 mmol/L (22-30); Chloride 100 mmol/L (98-107); Estimated Creatinine Clearance 86 ml/min; Glucose 140 mg/dl (70-99); Potassium 4.2 mmol/L (3.5-5.1); Sodium 131 mmol/L (135-145); Total Protein 6.1 g/dl (6.3-8.2); eGFR > 60.00
[2025-06-01] MEDS: NSS IV (08:15)
[2025-06-01] MEDS: PROTONIX 40 MG PO (08:16)
[2025-06-01] MEDS: COZAAR 100 MG PO (08:17)
[2025-06-01] MEDS: KCL 20 MEQ PO (08:17)
[2025-06-01 08:42] LABS: Glycohemoglobin (HgbA1c) 5.7 % (4.0-5.9)
--- NOTE | 2025-06-01 10:07 | W.PN.HOSP.TC ---
Addendum entered and electronically signed by Luis Solis MD 06/01/25 12:57:
Total time spent on d/c = 35 min. This included today's physical exam, progress note, review of laboratory and diagnostic data, preparation of discharge documents and prescriptions, and discussions about the pt's hospital course and discharge plan
with the patient and other medical clinic manager involved in the patient's care.
Original Note:
Today's Communication/Plan
-
see plan
Assessment / Plan
Assessment / Plan
Gen: NAD, AAOx3.
Eyes: EOMI, PERRLA, no scleral icterus.
Neck: supple.
CV: remains RRR, +S1/S2, no m/r/g.
Resp: remains CTAB, no rales, wheezes, or rhonchi.
Abd: +BS, soft, NT to light palpation, ND
Skin: No rashes.
Neuro: CN 2-12 intact, non-focal.
Psych: Normal mood and affect.
CT A/P:
1. No acute intra-abdominal process identified.
2. As above, area of decreased hepatic attenuation with indistinct margins along the lateral aspect of the right lobe of the liver with associated mild capsular retraction. This could be related to scarring or perfusion anomaly. Other etiologies
including neoplasm are possible, considered less likely. Could be further evaluated with follow-up abdominal ultrasound nonemergently.
3. Cholelithiasis.
4. Multiple ventral hernias as above. There is involvement of small and large bowel, no associated obstruction. No signs of associated acute inflammatory changes.
RUQ pain due to acute cholecystitis:
-LFTs/Lipase normal, afebrile, no leukocytosis
-CT A/P with 1.2cm GB neck cholelithiasis
-s/p laparoscopic cholecystectomy, note operative findings 'Distended and inflamed GB, edematous tissues, wall thickening, turbid fluid within RUQ.'
-currently on Zosyn
Other problems:
DM2: a1c 5.7%, SSI/accuchecks
HLD: cont statin
Essential HTN: cont ARB
Obesity due to excess calories
Chronic hypokalemia: cont PO K
FULL/Heparin
Anticipated Discharge: Within 24 hours
Subjective/Interval History
-
Date of Service: June 01, 2025
No new complaints, abd pain has improved.
Objective Data
-
Labs:
Laboratory Results
06/01/25
07:04
WBC 10.5
Hgb 11.3 L
Hct 32.6 L
Plt Count 182
Sodium 131 L D
Potassium 4.2
Chloride 100
Carbon Dioxide 27
BUN 16
Creatinine 1.1
Glucose 140 H
Calcium 8.2 L
Total Bilirubin 1.1
AST 27
ALT 25
Alkaline Phosphatase 68
Vital Signs:
Vital Signs
Temp Pulse Resp BP Pulse Ox
97.9 F 69 18 107/57 96
06/01/25 07:45 06/01/25 07:45 06/01/25 07:45 06/01/25 07:45 06/01/25 07:45
I&O
05/31/25 06/01/25 06/02/25
06:59 06:59 05:59
Intake Total 1365 / 1365
Output Total 400 / 400
Balance 965 / 965
[2025-06-01 11:49] LABS: Glucose - Point of Care 125 mg/dl (70-99)
--- NOTE | 2025-06-01 12:44 | W.PN.GS2 ---
Addendum entered and electronically signed by Gabriel Corona MD 06/01/25 13:01:
Patient seen and examined.
No complaints. Pain well-controlled. No nausea or vomiting. Has yet to have solid food. No fevers. Minimal ambulation. Voiding.
Gen: NAD
Abd: soft, mild tenderness, ND/obese, non-peritoneal, incisions c/d/i - no erythema, ecchymosis or drainage
However lately else she is going through the wound
Patient is a 65 yo M presenting with acute calculous cholecystitis now POD #1 lap niyah
AFVSS
No repeat labs
Minimal post operative discomfort
Tolerating PO intake thus far
Plan:
-- Low fat diet
-- Pain control: Tylenol, Toradol, Oxycodone
-- Abx: none further abx upon d/c
-- Home meds
-- DVT: Hep sq for VTE ppx
-- Ok for d/c from surgical standpoint once tolerating diet. Discharge instructions updated.
-- Medical management, dispo as per primary team
Original Note:
Today's Communication / Plan
-
LFD
dispo planning
Assessment / Plan
-
65 yo male presenting with acute calculous cholecystitis now POD #1 lap niyah
AFVSS
Minimal post operative discomfort
Tolerating Po intake thus far
Plan:
Low fat diet
Analgesics prn
No need for further abx upon d/c
Hep sq for VTE ppx
Ok for d/c from surgical standpoint once tolerating diet. Discharge instructions updated.
Medical management, dispo as per primary team
Subjective Data
-
Date of Service: June 01, 2025
Pt seen and examined at bedside with Dr. Corona. Denies n/v. Has only been eating crackers and water. Minimal post op discomfort. Pain present prior to surgery now resolved. Passing flatus.
Objective Data
-
Intake and Output
05/31/25 06/01/25 06/02/25
06:59 06:59 05:59
Intake Total 1365 / 1365
Output Total 400 / 400
Balance 965 / 965
Intake:
Oral fluids 240 / 240
IV fluids (Total) 1025 / 1025
Normosol 325 / 325
IV piggybacks 100 / 100
Output:
Urine, Voided 400 / 400
Vital Signs
Temp Pulse Resp BP Pulse Ox
97.9 F 69 18 107/57 96
06/01/25 07:45 06/01/25 07:45 06/01/25 07:45 06/01/25 07:45 06/01/25 07:45
Lab Results
06/01/25 07:04
06/01/25 07:04
Calcium 8.2 mg/dl (8.4-10.2) L 06/01/25 07:04
Total Bilirubin 1.1 mg/dl (0.2-1.3) 06/01/25 07:04
AST 27 U/L (17-59) 06/01/25 07:04
ALT 25 U/L (0-50) 06/01/25 07:04
Alkaline Phosphatase 68 U/L (38-126) 06/01/25 07:04
Total Protein 6.1 g/dl (6.3-8.2) L 06/01/25 07:04
Albumin 3.1 g/dl (3.5-5.0) L 06/01/25 07:04
Physical Exam
-
NAD
ABD soft, ND, minimal incisional tenderness
Lap incisions well approximated with intact glue
--- NOTE | 2025-06-01 12:57 | W.DCSUMMARY ---
Discharge Summary
Discharge Data
Date of Admission: 05/31/25
Date of Discharge: 06/01/25
-
Pending Results: No
Hospital Course
Primary diagnoses:
Acute calculous cholecystitis s/p laparoscopic cholecystectomy
Secondary diagnoses:
Type 2 diabetes mellitus
Hyperlipidemia
Essential hypertension
Obesity due to excess calories
Chronic hypokalemia
Consultants:
General Surgery
Imaging:
CT A/P:
1. No acute intra-abdominal process identified.
2. As above, area of decreased hepatic attenuation with indistinct margins along the lateral aspect of the right lobe of the liver with associated mild capsular retraction. This could be related to scarring or perfusion anomaly. Other etiologies
including neoplasm are possible, considered less likely. Could be further evaluated with follow-up abdominal ultrasound nonemergently.
3. Cholelithiasis.
4. Multiple ventral hernias as above. There is involvement of small and large bowel, no associated obstruction. No signs of associated acute inflammatory changes.
Hospital course: 65-year-old male presented yesterday with chief complaint of right upper quadrant pain as outlined in H&P done on admission. LFTs/Lipase normal, afebrile, no leukocytosis. CT A/P above with 1.2cm GB neck cholelithiasis. The patient
underwent laparoscopic cholecystectomy, note operative findings 'Distended and inflamed GB, edematous tissues, wall thickening, turbid fluid within RUQ.' He tolerated the procedure well. He was on Zosyn while hospitalized but as per surgery does
not require antibiotics on discharge. He was tolerating a diet at the time of discharge and was discharged in medically stable condition.
Discharge Plan
-
Patient Disposition: Home (Routine Discharge)
Discharge Diagnosis/Procedures: Acute calculous cholecystitis s/p laparoscopic cholecystectomy
Condition: Fair
Diet: As tolerated and Low Fat
Additional Diets: If you notice loose stools after surgery, follow a low fat diet
Activity: No strenuous activity
Additional Activity: Do not lift over 20lbs for the next 2-3 weeks
Driving Restrictions: No driving for 24 hours
Bathing Restrictions: OK to Shower
Wound Care: glue will flake off on its own in the next 1-2 weeks, avoid soaking in tubs or pools during this time
Activity Restrictions/Additional Instructions:
call your surgeon if you have fevers >100.5, nausea with vomiting or worsening abdominal pain
Referrals:
Gabriel Corona MD [Active, Surgical] - in two to four weeks
Winifred Rasmussen MD [Family Provider, Family Practice] - in less than 1 week
Prescriptions:
New
acetaminophen [Tylenol] 325 mg tablet
650 mg PO Q6H PRN (Reason: fever or pain) Qty: 1 0RF
Continued
aspirin 81 MG tablet,delayed release (DR/EC)
81 mg PO HS
potassium chloride [Klor-Con M20] 20 MEQ tablet,ER particles/crystals
20 meq PO DAILY
tamsulosin 0.4 MG capsule
0.4 mg PO HS
potassium chloride [Klor-Con M20] 20 MEQ tablet,ER particles/crystals
40 meq PO QPM
Mounjaro 15 mg/0.5 mL Pen Injector
15 mg SC WE
losartan-hydrochlorothiazide 100-25 mg Tablet
1 tab PO DAILY
rosuvastatin [Crestor] 40 mg Tablet
40 mg PO DAILY
omeprazole 20 mg Tablet,Delayed Release (Dr/Ec)
20 mg PO DAILY
Discharge Orders:
Discharge Patient (As Directed); Ordered 06/01/25
Ordered By: Luis Solis
Discharge Date and Time
Print Language: JORDANIAN
--- NOTE | 2025-06-01 13:52 | CM ---
Chart reviewed home no needs.
Plan; Home no needs.
== END 2025-06-01 15:58 | disposition home or self-care (01) | DRG 419 ==
LOC: 4 WEST ACU 12:13
PROVIDERS: Student in an Organized Health Care Education/Training Program; ADMITTING PHYSICIAN Internal Medicine; EMERGENCY PHYSICIAN Emergency Medicine; FAMILY PHYSICIAN Family Medicine; OTHER PHYSICIAN Surgery
PROC: 0FT44ZZ Resection of Gallbladder, Percutaneous Endoscopic Approach (ICD-10-PCS; 2025-05-31)
PROC: BF141ZZ Fluoroscopy of Gallbladder, Bile Ducts and Pancreatic Ducts using Low Osmolar Contrast (ICD-10-PCS; 2025-05-31)
DX: K80.12 Calculus of gallbladder with acute and chronic cholecystitis without obstruction (principal); E11.9 Type 2 diabetes mellitus without complications; I10 Essential (primary) hypertension; E87.6 Hypokalemia; E66.01 Morbid (severe) obesity due to excess calories; Z68.37 Body mass index [BMI] 37.0-37.9, adult
CPT/HCPCS: 74177; 80053; 81003; 81015; 82962; 83036; 83690; 85025; 88304; 96361; 96374; 96375; 96376; 99285; Q9967